=== PATIENT | female | born 1995 | race Asian ===

== ENCOUNTER 2017-05-02 12:26 | Emergency (ER) | payer OTHER ==
--- NOTE | 2017-05-02 14:41 | RAD ---
HISTORY: Pneumothorax COMPARISONS: Outside chest x-ray dated May 02, 2017 VIEWS: 6: Frontal inspiratory and expiration dual-energy views of the chest FINDINGS: CARDIOMEDIASTINAL SILHOUETTE: The cardiomediastinal silhouette is normal. JORGE: The jorge are normal. PLEURA: There is a small right apical pneumothorax, slightly increased in size from the previous examination, this accentuates with expiration. LUNG PARENCHYMA: The lungs are clear. ABDOMEN: The upper abdomen is clear. There is no subphrenic gas. BONES AND SOFT TISSUES: No bone or soft tissue abnormalities are noted. OTHER: None. IMPRESSION: SMALL RIGHT APICAL PNEUMOTHORAX, SLIGHTLY INCREASED COMPARED TO THE EARLIER MAY 02, 2017 EXAMINATION.
--- NOTE | 2017-05-02 17:26 | RAD ---
INDICATION: Pneumothorax COMPARISON: May 02, 2017 TECHNIQUE: A single PA view is submitted obtained. FINDINGS: Bones/Soft Tissues: There are no acute bony findings. Cardiomediastinal: The cardiomediastinal silhouette is normal. Lungs: There are no infiltrates. There is a small right apical pneumothorax with 1.4 cm of visceral-parietal surface separation at the apex. The appearance unchanged. Pleura: There are no pleural effusions. Other: None IMPRESSION: SMALL RIGHT APICAL PNEUMOTHORAX, UNCHANGED.
[2017-05-02 18:06] VITALS: BP 106/59
--- NOTE | 2017-05-02 23:45 | CONS ---
CC: [facility]; [facility] * SURGICAL CONSULTATION REPORT: DATE OF CONSULT: 05/02/17 LOCATION: Emergency room. HISTORY OF PRESENT ILLNESS: I was contacted by the emergency room physicians to evaluate Ms. Rodriguez, a 21-year-old female, [employer] , who presented to [facility] earlier today with complaints of mid right- sided chest pain. This had started on Tuesday and had worsened, somewhat intermittent, exacerbated with deep breathing. The patient denied any previous similar symptoms. Apparently, she underwent an x-ray, was diagnosed with a small apical pneumothorax on the right and was sent to the emergency room for further evaluation. In the emergency room, the patient underwent another x-ray at around 2 o'clock. This image was reviewed and this was when I was contacted for recommendation from the emergency room, who felt that the patient was okay for discharge. Over the phone, I did recommend a followup study after reading the report that suggested a small increase. The patient underwent a chest x-ray approximately 3 hours later and I reviewed this as well and it showed no significant change given the right apical pneumothorax. This is when I saw the patient. She was comfortable and had no additional complaints. She denied any previous similar symptoms. She was concerned in having to fly back to [facility] next week. She had minimal shortness of breath, she was saturating 100%. She had no nausea, no vomiting. No recent trauma. She is a nonsmoker and does not use any drugs. The patient was afebrile with stable vital signs and O2 sat of 100% on room air. Alert and oriented x3 in no apparent distress. No additional physical exam was performed. I discussed with her the diagnosis of small pneumothorax, likely spontaneous, without any evidence of tension. I do not recommend placement of a chest tube at this time given the small size and minimal symptoms. I outlined the need for being alert to any change in her symptoms. I requested she not do any exercise and do not fly. I would like to see her in our offices on Tuesday along with an x-ray before she arrives. We will this through our offices and see if it shows near resolution at that time. If it does not, the patient may benefit from Heimlich valve type placement; however, at this time, I do not believe the risks outweigh the benefits. We will follow her closely and if there is any concern, she or [facility] can contact [facility]. [id number]/CPS #: [id number] DENIA
== END 2017-05-02 18:07 | disposition home or self-care (01) ==
LOC: ED 12:26
DX: J93.9 Pneumothorax, unspecified (principal)
CPT/HCPCS: 71010; 71020; 99283